=== PATIENT | female | born 1970 | race Caucasian/White ===

== ENCOUNTER 2016-07-11 16:51 | Emergency (ER) | payer OTHER ==
[2016-07-11 17:04] VITALS: BP 126/77; PULSE 71; O2SAT 99
--- NOTE | 2016-07-11 17:17 | ERPHSYRPT ---
- History of Present Illness Time Seen by Provider: 07/11/16 17:10 Source: patient Exam Limitations: no limitations Patient Subjective Stated Complaint: pt states around 1630 she was stung by a wasp in right arm. 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 states her Epi pen was . pt denies any difficulty breathing or throat tightness. Triage Nursing Assessment: pt pink, warm, dry, pt breathing wnl. no swelling or redness at site. Physician History: The patient is a 45-year-old female accompanied by her complaining that she was stung on the right elbow by a wasp about 35 minutes before being seen in the emergency room. The patient states she has an allergy to wasp because 7 years ago she was stung on the arm and her arm swelled. She has carried an EpiPen ever since but today her EpiPen had . She did not inject herself with the EpiPen. She did not take Benadryl. Since the episode 7 years ago, she does not say she has been stung. Timing/Duration: other (35 min) Quality: burning Severity: mild Location: extremities (right elbow) Possible Causes: insect sting (wasp) Modifying Factors: Improves With: other (none) Associated Symptoms: rash (mild), No difficulty breathing Allergies/Adverse Reactions: acetaminophen [From Vicodin] Allergy (Verified 07/11/16 17:03) hydrocodone [From Vicodin] Allergy (Verified 07/11/16 17:03) Home Medications: Tramadol HCl 50 mg PO DAILY PRN 07/11/16 [History] Hx Tetanus, Diphtheria Vaccination/Date Given: Yes (up to date) Hx Influenza Vaccination/Date Given: No Hx Pneumococcal Vaccination/Date Given: No Immunizations Up to Date: Yes - Review of Systems Constitutional: No Fever, No Chills Eyes: No Symptoms Ears, Nose, & Throat: No Symptoms Respiratory: No Cough, No Dyspnea Cardiac: No Chest Pain, No Edema, No Syncope Abdominal/Gastrointestinal: No Abdominal Pain, No Nausea, No Vomiting, No Diarrhea Genitourinary Symptoms: No Dysuria Musculoskeletal: No Back Pain, No Neck Pain Skin: Rash Neurological: No Dizziness, No Focal Weakness, No Sensory Changes Psychological: No Symptoms Endocrine: No Symptoms - Past Medical History Pertinent Past Medical History: No - Past Surgical History Past Surgical History: Yes Gastrointestinal: Cholecystectomy Musculoskeletal: Joint Replacement, Orthopedic Surgery Female Surgical History: Hysterectomy, Section - Social History Smoking Status: Current every day smoker How long have you smoked: 25 Exposure to second hand smoke: No Drug Use: none Patient Lives Alone: No - Nursing Vital Signs Nursing Vital Signs: Initial Vital Signs Temperature 98.5 F Temperature Source Oral Pulse Rate 71 Respiratory Rate 18 Blood Pressure [Right Arm] 126/77 Pain Intensity 3 - Physical Exam General Appearance: no apparent distress, alert Skin Exam: rash (Examination of the right elbow reveals a mildly erythematous area approximately 2 cm in diameter covering the elbow. The area is not swollen. I did not see any punctate lesion.) SpO2: 99 Oxygen Delivery: Room Air - Progress Progress: unchanged Progress Note: 07/11/16 17:21 During the examination I discussed with her of the mildness of the current wasp sting. I suggested that she was not having an anaphylactic shock. I stated that there could've been a missed diagnosis 7 years ago that she was truly allergic to WASP venom. I did say that it would be marlow to keep a current EpiPen handy for possible future use. Immediately the patient got up from the bed and demanded that she be given discharge papers. She said that I will had an insulted her primary care physician of 25 years. Her was there and witnessed the event. Her even asked her what was wrong. He didn't understand why she was so upset. I was not able to provide any further assistance such as Benadryl or Zyrtec. Counseled pt/family regarding: diagnosis - Departure Time of Disposition: 17:25 Departure Disposition: Home Clinical Impression: Wasp sting Condition: Stable Critical Care Time: No Additional Instructions: You were stung by a wasp but had a very mild reaction to the wasp then them. Take Benadryl 25-50 mg every 2-4 hours as needed. He may also take Zyrtec 1 tablet today. Keep a current EpiPen handy for future events. Follow-up as needed.
== END 2016-07-11 17:34 | disposition home or self-care (01) ==
LOC: ED 16:51
DX: T63.411A Toxic effect of venom of centipedes and venomous millipedes, accidental (unintentional), initial encounter (principal)
CPT/HCPCS: 99282